=== PATIENT | female | born 1990 | race Caucasian/White ===

== ENCOUNTER 2020-06-22 04:42 | Inpatient (IN) | payer OTHER, SELFPAY ==
[2020-06-22] VITALS (141 sets, daily range): BP systolic 98–142; BP diastolic 52–99; PULSE 62–131; RESP 16–18; TEMP 36.8–37.2; O2SAT 97–100; BMI 26.9
--- NOTE | 2020-06-22 05:11 | LDADM ---
This patient, Sylvia Morales, was admitted to Labor/Delivery/Recovery 104 on 06/22/20 at 04:42. Plans for labor, pain management and were discussed with patient. Patient/family oriented to hospital policies and general routines including ID bracelet, bed and alarms, visiting hours, pain management, procedures, bathroom and other care routines, personal items, smoking policy, room service/diet and guest tray routines, security routines, and visiting hours. Patient/Family are encouraged to report perceived risks to care and to ask questions if they do not understand what they are told or what they should do. See OBIX for further documentation.
[2020-06-22 05:31] LABS: Basophils Absolute Auto 0.1 K/mm3 (0.0-0.1); Basophils Percent Auto 0.6 % (0.2-1.2); Eosinophils Absolute Auto 0.2 K/mm3 (0-0.3); Eosinophils Percent Auto 1.7 % (0-4.4); Hematocrit 32.7 % (37.0-47.0); Hemoglobin 10.6 g/dL (12.0-15.0); Immature Granulocyte Absolute 0.07 K/mm3 (0.00-0.031); Immature Granulocyte Percent A 0.6 % (0-0.5); Lymphocytes Absolute Auto 3.61 K/mm3 (0.9-3.2); Lymphocytes Percent Auto 31.5 % (18.3-44.2); Mean Corpuscular HGB Conc 32.4 g/dl (32-36); Mean Corpuscular Hemoglobin 28.5 pg (26-34); Mean Corpuscular Volume 87.9 fl (80-100); Mean Platelet Volume 12.9 fl (7.4-10.4); Monocytes Absolute Auto 0.7 K/mm3 (0.1-0.6); Monocytes Percent Auto 6.2 % (2.6-8.5); Neutrophils Absolute Auto 6.8 K/mm3 (1.3-6.7); Neutrophils Percent Auto 59.4 % (45.5-73.1); Platelet Count Result 191 k/mm3 (150-375); Red Blood Count 3.72 M/mm3 (4.2-5.4); Red Cell Distribution Width 12.7 % (11.5-14.5); White Blood Count 11.5 K/mm3 (4.5-10.0)
[2020-06-22] MEDS: OXYTOCIN 30 UNITS/NS 500 ML 30 UNITS/500 ML BAG 6 UNITS IV CONT (05:40)
[2020-06-22] MEDS: LACTATED RINGERS 1,000 ML 125 ML IV CONT (05:41)
--- NOTE | 2020-06-22 06:06 | P.PNAN_ITS ---
Anes - Eval Pre Procedure Procedure: labor epidural Date/Time: 06/22/20 06:06 Surgeon: kemar ferguson Pre Op Diagnosis: Induction of labor Patient Data Age: 29 Gender: F Height: 1.78 m Weight: 85 kg Allergies Allergy/AdvReac Type Severity Reaction Status Date / Time No Known Allergies Allergy Verified 05/31/20 15:41 Home Medications Medication Instructions Recorded Confirmed Type PNV cmb#95-ferrous fumarate-FA 1 tablet PO DAILY 05/31/20 05/31/20 History [] Laboratory Tests 06/22/20 06/22/20 05:15 05:15 WBC 11.5 K/mm3 H K/mm3 (4.5-10.0) RBC 3.72 M/mm3 L M/mm3 (4.2-5.4) Hgb 10.6 g/dL L g/dL (12.0-15.0) Hct 32.7 % L % (37.0-47.0) MCV 87.9 fl fl (80-100) MCH 28.5 pg pg (26-34) MCHC 32.4 g/dl g/dl (32-36) RDW 12.7 % % (11.5-14.5) Plt Count 191 k/mm3 k/mm3 (150-375) MPV 12.9 fl H fl (7.4-10.4) Immature Gran % (Auto) 0.6 % H % (0-0.5) Neut % (Auto) 59.4 % % (45.5-73.1) Lymph % (Auto) 31.5 % % (18.3-44.2) [place] % (Auto) 6.2 % % (2.6-8.5) Eos % (Auto) 1.7 % % (0-4.4) Baso % (Auto) 0.6 % % (0.2-1.2) Lymph # (Auto) 3.61 K/mm3 H K/mm3 (0.9-3.2) [place] # (Auto) 0.7 K/mm3 H K/mm3 (0.1-0.6) Eos # (Auto) 0.2 K/mm3 K/mm3 (0-0.3) Baso # (Auto) 0.1 K/mm3 K/mm3 (0.0-0.1) Abs Immat Gran (auto) 0.07 K/mm3 H K/mm3 (0.00-0.031) Absolute Neuts (auto) 6.8 K/mm3 H K/mm3 (1.3-6.7) Absolute Nucleated RBC 0.0 K/mm3 K/mm3 (0.0-0.012) Nucleated RBC % 0.0 % % (0.0-0.2) RPR Pending Patient hx anesthesia problems: none Family hx anesthesia problems: none [facility] Family History Family History (Updated 05/31/20 @ 15:44 by Adenike Hagen RN) Grandparent Hypertension Prostate carcinoma Lung cancer Diabetes type 2, controlled Congestive heart failure Social History Social History Smoking status: Never smoker Substance use: never Spiritual care concerns: No Exam Day of Procedure 06/22/20 06:06
--- NOTE | 2020-06-22 07:57 | PM.IMHP ---
H&P: HPI History of Present Illness Date/Time: 06/22/20 07:57 Chief complaint: Induction of labor Narrative: Sylvia Morales is a 29 year old female 1 para 0 whose last menstrual period was 09/19/2019, EDC is 06/25/2020, presents at 39 and half weeks gestation for induction of labor. She has advanced cervical dilatation with the cervix 4+ cm. Her has been uncomplicated. She is negative for group B strep Review of Systems Review of Systems: All systems reviewed & are unremarkable except as noted in HPI and below PMFSH Family History Family History Grandparent Hypertension Prostate carcinoma Lung cancer Diabetes type 2, controlled Congestive heart failure Social History Social History Smoking status: Never smoker Substance use: never Spiritual care concerns: No Meds Home Medications and Allergies Home Medications Medication Instructions Recorded Confirmed Type PNV cmb#95-ferrous fumarate-FA 1 tablet PO DAILY 05/31/20 05/31/20 History [] Allergies Allergy/AdvReac Type Severity Reaction Status Date / Time No Known Allergies Allergy Verified 05/31/20 15:41 Vital Signs Vital Signs - 24 hr 06/22/20 06:20 06/22/20 06:31 06/22/20 06:46 Temperature 98.2 F Pulse Rate 78 72 68 Blood Pressure 134/84 128/85 101/59 L 06/22/20 07:16 06/22/20 07:31 06/22/20 07:46 Temperature Pulse Rate 75 65 70 Blood Pressure 116/72 109/70 108/79 Exam Const: General: no acute distress Eyes: General: appearance normal, both eyes and all related structures Neck: Neck: supple and no JVD Thyroid: thyroid normal Resp: Effort & Inspection: normal respiratory effort Auscultation: clear to auscultation bilaterally Cardio: Rate: regular rate Rhythm: regular rhythm GI: Inspection: non-distended GI Palp: Yes Soft to palpation, No Tenderness to palpation present (GI) and No Guarding due to palpation present (GI) Auscultation: normal bowel sounds : General: Yes other ( cervix is 4/90/1. AROM clear. FHTs reassuring) Skin: General skin exam: no rashes or lesions noted Extrem: General: normal to inspection and no edema Psych: Mental Status: mental status grossly normal Affect: normal affect H&P: Results Labs Labs: Short CBC 06/22/20 Range/Units 05:15 WBC 11.5 H (4.5-10.0) K/mm3 Hgb 10.6 L (12.0-15.0) g/dL Hct 32.7 L (37.0-47.0) % Plt Count 191 (150-375) k/mm3 Assessment and Plan Additional Plan impression: Term with favorable cervix Plan: Medical induction of labor. Spontaneous vaginal delivery is expected. She has an epidural candidate
[2020-06-22] MEDS: LACTATED RINGERS 1,000 ML 999 ML IV CONT ×2 (11:00→11:01)
--- NOTE | 2020-06-22 11:53 | PM.OBPNVD ---
OB - PN: Subj Subjective Date/time seen: 06/22/20 11:53 cx 6.5 by rn exam fhts ok epidural in OB - PN: Obj Data Labs CBC & Chem 7: 06/22/20 05:15 Labs: Laboratory Results - last 24 hr 06/22/20 06/22/20 05:15 05:15 WBC 11.5 H RBC 3.72 L Hgb 10.6 L Hct 32.7 L MCV 87.9 MCH 28.5 MCHC 32.4 RDW 12.7 Plt Count 191 MPV 12.9 H Immature Gran % (Auto) 0.6 H Neut % (Auto) 59.4 Lymph % (Auto) 31.5 [place] % (Auto) 6.2 Eos % (Auto) 1.7 Baso % (Auto) 0.6 Lymph # (Auto) 3.61 H [place] # (Auto) 0.7 H Eos # (Auto) 0.2 Baso # (Auto) 0.1 Abs Immat Gran (auto) 0.07 H Absolute Neuts (auto) 6.8 H Absolute Nucleated RBC 0.0 Nucleated RBC % 0.0 Blood Type O Positive Antibody Screen Negative OB - PN A/P Time Spent With Patient Time: Total time spent is greater than 50% in coordination of care (as documented) at patient's floor/unit and/or counseling patient:
--- NOTE | 2020-06-22 14:36 | PM.OBPRVD ---
OB - Delivery Note Procedure Delivery date: 06/22/20 Intrapartal events: None Induction method: none Delivery monitor: none Route of delivery: Episiotomy description: None Laceration description: Perineal - 2nd Degree Delivery repair: vicryl Specimen: No Estimated blood loss (mL): 57 Anesthesia type: Epidural Disposition: floor [place] Baby Date of : 06/22/20 Time of : 14:25 Weeks of gestation at delivery: 39 Weight (pounds): 9 Weight (ounces): 11 presentation: vertex position: Right Occiput Anterior Placenta delivery description: Spontaneous cord vessel description: 3 Vessels and Nuchal Cord score one minute: 8 score five minutes: 9
[2020-06-22] MEDS: OXYTOCIN 30 UNITS/NS 500 ML 30 UNITS/500 ML BAG 125 UNITS IV CONT (14:59)
[2020-06-22] MEDS: WITCH HAZEL 40 PADS 1 PAD TOPICAL (16:51)
[2020-06-22] MEDS: IBUPROFEN 600 MG TABLET PO (16:51)
[2020-06-22] MEDS: BENZOCAINE 20% AER SPR (*SP) 56 GM CAN 1 SPRAY TOPICAL (16:51)
--- NOTE | 2020-06-22 17:43 | PC.NURSE ---
Patient transferred to post room #280 via wheelchair. Support person present. Oriented to unit, room, information board, rooming in, admission packet and security measures. Patient verbalizes understanding.
[2020-06-22] MEDS: ACETAMINOPHEN 325 MG TABLET 650 MG PO (20:01)
[2020-06-23] MEDS: IBUPROFEN 600 MG TABLET PO ×3 (00:03→15:45)
[2020-06-23 05:20] LABS: Hematocrit 26.5 % (37.0-47.0); Hemoglobin 8.6 g/dL (12.0-15.0)
--- NOTE | 2020-06-23 06:36 | PM.OBPNVD ---
OB - PN: Subj Subjective Date/time seen: 06/23/20 06:36 Patient comments: no complaints and pain well controlled baby status: doing well and nursing well OB - PN: Obj Data Labs CBC & Chem 7: 06/23/20 04:54 Labs: Laboratory Results - last 24 hr 06/22/20 06/23/20 05:15 04:54 Hgb 8.6 L Hct 26.5 L Blood Type O Positive Antibody Screen Negative OB - PN A/P Plan day: 1 Plan: routine care Time Spent With Patient Time: Total time spent is greater than 50% in coordination of care (as documented) at patient's floor/unit and/or counseling patient: Time with patient: less than 15 minutes Review of Systems Review of Systems: All systems reviewed & are unremarkable except as noted in HPI and below Exam Const: General: no acute distress Eyes: General: appearance normal, both eyes and all related structures Neck: Neck: supple and no JVD Thyroid: thyroid normal Resp: Effort & Inspection: normal respiratory effort Auscultation: clear to auscultation bilaterally Cardio: Rate: regular rate Rhythm: regular rhythm GI: Inspection: non-distended GI Palp: Yes Soft to palpation, No Tenderness to palpation present (GI) and No Guarding due to palpation present (GI) Auscultation: normal bowel sounds : General: Yes bladder normal to palpation External Female Exam: normal external appearance Speculum Exam - Vagina: normal vaginal discharge and No vaginal bleeding Speculum Exam - Cervix: nontender Bimanual exam- vagina & uterus: bladder normal to palpation and No Cervical tenderness present OB/external & speculum: No vaginal bleeding Skin: General skin exam: no rashes or lesions noted Extrem: General: normal to inspection and no edema Psych: Mental Status: mental status grossly normal Affect: normal affect
[2020-06-23] MEDS: MULTIVIT/MIN/PREN/FOL AC/IRON TABLET 1 TAB PO (07:35)
[2020-06-23] MEDS: POLYSACCHARIDE IRON COMPLEX 150 MG CAPSULE PO ×2 (07:35→15:45)
[2020-06-23] MEDS: DOCUSATE SODIUM 100 MG CAPSULE PO ×2 (07:36→15:45)
--- NOTE | 2020-06-23 08:17 | WPDANLDPN2 ---
Anes-Prog Note L&D Date/Time: 06/23/20 08:17 Comfortable throughout: labor and delivery Neuraxial method: epidural Epidural/Spinal procedure site: clean & non-tender Neuro status: Neuro function grossly intact. Cardiovascular status: normal Respiratory status: normal Airway patency: baseline Mental status: baseline Post-Op hydration status: normal Vital Signs: Last Vital Signs Temp 36.9 C 06/22/20 19:50 Pulse 74 06/22/20 19:50 Resp 18 06/22/20 19:50 BP 116/72 06/22/20 19:50 Pulse Ox 99 06/22/20 19:50 Pain score (VAS): 0 Post-procedural complaints: none Patient feedback: Patient satisfied with anesthetic care.
[2020-06-23 09:00] VITALS: BP 119/66; PULSE 75; RESP 16; TEMP 36.6; O2SAT 99
[2020-06-23 09:15] LABS: Rapid Plasma Reagin Non-Reactive (NonReactive)
[2020-06-23 19:35] VITALS: BP 114/67; PULSE 87; RESP 16; TEMP 36.7; O2SAT 100
--- NOTE | 2020-06-23 19:35 | PC.NURSE ---
Patient viewed the discharge video Mother & Baby Care, The First Two Weeks . Patient was given the opportunity and encouraged to ask questions. Patient verbalized understanding of information shared and has been given the mother/baby guide for home reference.
--- NOTE | 2020-06-24 07:27 | PM.DS ---
DS: Admitting Diagnosis Admitting Diagnosis Admitting Diagnosis: Induction of labor Term intrauterine DS: Summary Time Spent with Patient Time attestation: Total time spent providing and/or coordinating discharge services: the patient's hospital course was unremarkable. She is . She was up. Voiding without difficulty. She was without complaints. Routine discharge instructions were given. Her condition upon release was excellent Exam Const: General: no acute distress Eyes: General: appearance normal, both eyes and all related structures Neck: Neck: supple and no JVD Thyroid: thyroid normal Resp: Effort & Inspection: normal respiratory effort Auscultation: clear to auscultation bilaterally Cardio: Rate: regular rate Rhythm: regular rhythm GI: Inspection: non-distended GI Palp: Yes Soft to palpation, No Tenderness to palpation present (GI) and No Guarding due to palpation present (GI) Auscultation: normal bowel sounds : General: Yes bladder normal to palpation External Female Exam: normal external appearance Speculum Exam - Vagina: normal vaginal discharge and No vaginal bleeding Speculum Exam - Cervix: nontender Bimanual exam- vagina & uterus: bladder normal to palpation and No Cervical tenderness present OB/external & speculum: No vaginal bleeding Skin: General skin exam: no rashes or lesions noted Extrem: General: normal to inspection and no edema Psych: Mental Status: mental status grossly normal Affect: normal affect DS: Data Data Completed and Pending Labs on day of discharge: Labs from last 24 hours 06/22/20 05:15 RPR Non-reactive Discharge Plan Discharge Attending physician on discharge: Curry Gross Discharging Clinician: Curry Gross Patient Disposition: Home, Self-Care Activity: may shower, no straining, may drive after 2 weeks and pelvic rest Diet: heart healthy Wound Care Instructions: follow printed instructions Patient Instructions: Antibiotic Form Stand Alone Forms: General Discharge Information Follow-up/Referrals: Curry Gross MD [Primary Care Provider] - Discharge Medications: Continued PNV cmb#95-ferrous fumarate-FA [] 28 mg iron- 800 mcg Tablet 1 tablet PO DAILY RF: 0 Date of admission: 06/22/20 04:42 Primary Care Provider: Curry Gross Admitting Provider: Curry Gross Attending physician on admission: Curry Gross
[2020-06-24] MEDS: IBUPROFEN 600 MG TABLET PO (07:29)
--- NOTE | 2020-06-24 07:29 | PM.OBPNVD ---
OB - PN: Subj Subjective Date/time seen: 06/24/20 07:29 Patient comments: no complaints and pain well controlled baby status: doing well and nursing well OB - PN: Obj Data Labs CBC & Chem 7: 06/23/20 04:54 Labs: Laboratory Results - last 24 hr 06/22/20 05:15 RPR Non-reactive OB - PN A/P Plan day: 1 Plan: routine care, discharge home and follow up 6 weeks Time Spent With Patient Time: Total time spent is greater than 50% in coordination of care (as documented) at patient's floor/unit and/or counseling patient: Time with patient: less than 15 minutes Review of Systems Review of Systems: All systems reviewed & are unremarkable except as noted in HPI and below Exam Const: General: no acute distress Eyes: General: appearance normal, both eyes and all related structures Neck: Neck: supple and no JVD Thyroid: thyroid normal Resp: Effort & Inspection: normal respiratory effort Auscultation: clear to auscultation bilaterally Cardio: Rate: regular rate Rhythm: regular rhythm GI: Inspection: non-distended GI Palp: Yes Soft to palpation, No Tenderness to palpation present (GI) and No Guarding due to palpation present (GI) Auscultation: normal bowel sounds : General: Yes bladder normal to palpation External Female Exam: normal external appearance Speculum Exam - Vagina: normal vaginal discharge and No vaginal bleeding Speculum Exam - Cervix: nontender Bimanual exam- vagina & uterus: bladder normal to palpation and No Cervical tenderness present OB/external & speculum: No vaginal bleeding Skin: General skin exam: no rashes or lesions noted Extrem: General: normal to inspection and no edema Psych: Mental Status: mental status grossly normal Affect: normal affect
[2020-06-24 07:30] VITALS: BP 113/76; PULSE 90; RESP 12; TEMP 36.8; O2SAT 99
[2020-06-24] MEDS: POLYSACCHARIDE IRON COMPLEX 150 MG CAPSULE PO (07:30)
[2020-06-24] MEDS: DOCUSATE SODIUM 100 MG CAPSULE PO (07:30)
[2020-06-24] MEDS: MULTIVIT/MIN/PREN/FOL AC/IRON TABLET 1 TAB PO (07:30)
--- NOTE | 2020-06-24 12:05 | PC.NURSE ---
Mother verbalizes she is able to independently latch with appropriate positioning/alignment. She denies any nipple discomfort, is feeding as required and waking to feed if needed. Infant has had appropriate number effective feedings in the past 24 hours, and is currently meeting outcomes for weight, output, jaundice and feeding frequencies. Mother states she feels confident to continue effective at home. Reviewed transition to breast milk, signs of adequate intake, and engorgement/relief. Instructed to call ICP if intake/output less than required. Reviewed resources in the Mom/Baby guide. Mother has no further questions at this time.
[2020-06-26 10:27] VITALS: BP 136/75; PULSE 74; RESP 20; O2SAT 100
== END 2020-06-24 13:30 | disposition home or self-care (01) | DRG 807 ==
LOC: ANHLDR 04:46 → ANHOB2 18:46
PROVIDERS: Admitting Provider Obstetrics & Gynecology; PCP Obstetrics & Gynecology; Visit Provider Obstetrics & Gynecology
DX: O69.81X0 Labor and delivery complicated by cord around neck, without compression, not applicable or unspecified (principal); Z37.0 Single live birth; O70.1 Second degree perineal laceration during delivery; Z3A.39 39 weeks gestation of pregnancy; Z28.21 Immunization not carried out because of patient refusal
CPT/HCPCS: 36415; 85014; 85018; 85025; 86592; 86850; 86900; 86901; A9270; J2590; J7120

== ENCOUNTER 2022-11-12 14:56 | Outpatient (CLI) | payer OTHER, SELFPAY ==
--- NOTE | ~2022-11-12 | US_ITS ---
EXAMINATION: US OB <= 14 weeks fetus DATE: 11/12/2022 15:51 INDICATION: Vaginal bleeding and cramping Comparison:No prior studies for comparison. TECHNIQUE: Multiple transabdominal and endovaginal sonographic images of the pelvis performed. FINDINGS: The uterus measures 7.7 x 5.9 x 4 cm. The endometrial complex measures 5 mm. No evidence fo r intrauterine gestational sac. The right ovary measures 4.2 x 4.1 x 2.5 cm and the left ovary measures 2.7 x 2.4 x 2.1 cm. There ar e small follicles in each ovary. Normal doppler signal in both ovaries. There is a 2.4 cm right ovari an cyst. There is free fluid in the pelvis. There are no abnormal masses seen on either side. IMPRESSION: 1. No evidence for intrauterine gestational sac. Differential diagnosis very early intrauterine pregn khloe, failed and ectopic . Recommend follow-up with quantitative beta-hCG levels a nd ultrasound as clinically warranted. 2: 2.4 cm right ovarian cyst. Reviewed, dictated and finalized at location [facility] IMPRESSION: 1. No evidence for intrauterine gestational sac. Differential diagnosis very ea rly intrauterine , failed and ectopic . Recommend f ollow-up with quantitative beta-hCG levels and ultrasound as clinically warrant ed. 2: 2.4 cm right ovarian cyst.
== END 2022-11-12 14:57 | disposition home or self-care (01) ==
PROVIDERS: PCP Internal Medicine; Visit Provider Obstetrics & Gynecology
DX: O20.0 Threatened abortion (principal); N83.201 Unspecified ovarian cyst, right side
CPT/HCPCS: 76801

== ENCOUNTER 2023-10-01 19:26 | Observation (INO) | payer OTHER, SELFPAY ==
[2023-10-01 19:45] VITALS: BMI 27.4
[2023-10-01 20:03] VITALS: RESP 16; TEMP 37.1
--- NOTE | 2023-10-01 21:38 | OBADM ---
This patient, Sylvia Morales, admitted to the OB room Labor/Delivery/Recovery 106 for observation. Patient/family oriented to hospital policies and general routines including ID bracelet, bed and alarms, visiting hours, pain management, procedures, bathroom and other care routines, personal items, smoking policy, room service/diet, and visiting hours. Patient/Family are encouraged to report perceived risks to care and to ask questions if they do not understand what they are told or what they should do.
--- NOTE | 2023-10-24 05:35 | PM.OBTRLD ---
OB - Triage/Final Diagnosis Visit Information Comments/Additional reasons for admission: I have assessed the risk for this patient, Sylvia Morales, and determined that she would benefit from observation care. Final Diagnosis (1) Decreased movement: Code(s): O36.8190 - Decreased movements, unspecified trimester, not applicable or unspecified Status: Acute
== END 2023-10-01 21:41 | disposition home or self-care (01) ==
PROVIDERS: Admitting Provider Obstetrics & Gynecology; PCP Internal Medicine; Visit Provider Obstetrics & Gynecology
DX: O36.8130 Decreased fetal movements, third trimester, not applicable or unspecified (principal); Z3A.37 37 weeks gestation of pregnancy
CPT/HCPCS: G0378; G0379

== ENCOUNTER 2023-10-08 17:55 | Inpatient (IN) | payer OTHER, SELFPAY ==
[2023-10-08] VITALS (65 sets, daily range): BP systolic 89–153; BP diastolic 56–101; PULSE 66–189; RESP 18; TEMP 36.6–36.9; O2SAT 96–100; BMI 28.0
--- NOTE | 2023-10-08 18:06 | PM.IMHP ---
H&P: HPI History of Present Illness Date/Time: 10/08/23 18:06 Chief Complaint: Return Narrative: this is a 33-year-old 3 para 1 whose EDC is 10/18 confirmed by early ultrasound presents at 39 half weeks gestation in active labor she is group B strep back to your yeah. has otherwise been uncomplicated [facility] Family History Family History Grandparent Hypertension Prostate carcinoma Lung cancer Diabetes type 2, controlled Congestive heart failure Social History Social History Social History: Smoking status: Never smoker Second hand tobacco smoke exposure: No Alcohol intake: current Alcohol use details: Occasionally Substance use: never Substance use type: does not use Living arrangements: with family Occupation/Education: unemployed Additional occupation/education comments: Stay at home mom. Gender identity (if verbalized by the patient): Female Sexual Orientation (if Verbalized by the Patient): Straight or Heterosexual Spiritual care concerns: No Meds Home Medications and Allergies Home Medications Medication Instructions Recorded Confirmed Type ferrous sulfate 325 mg (65 mg 325 mg PO BID 09/19/23 09/19/23 History iron) tablet vits no.126-ferrous fum 1 tablet PO DAILY 09/19/23 09/19/23 History 28 mg iron-folic acid 800 mcg tablet (Classic ) Allergies Allergy/AdvReac Type Severity Reaction Status Date / Time No Known Allergies Allergy Verified 09/19/23 12:28 Exam Const: General: cooperative, healthy appearing and comfortable Nutritional Appearance: average body habitus Orientation/consciousness: oriented to person, oriented to place and oriented to time HENMT: Head: normal to inspection Chest: Chest palpation & inspection: normal inspection of the chest Resp: Effort & Inspection: normal respiratory effort Cardio: Rate: regular rate Rhythm: regular rhythm Heart sounds: S1 normal heart sound present and S2 normal heart sound present GI: Inspection: normal to inspection ( gravid soft uterus) : External Female Exam: normal external appearance Speculum Exam - Vagina: normal appearance of the vagina Speculum Exam - Cervix: normal appearance of the cervix ( cervix /. FHTs reassuring) Assessment and Plan Assessment and plan (1) Term : Code(s): Z34.90 - Encounter for supervision of normal , unspecified, unspecified trimester Status: Acute (2) Mother positive for group B Streptococcus colonization: Code(s): P00.82 - [place] affected by (positive) maternal group B streptococcus (GBS) colonization Status: Acute Plan group B strep prophylaxis. Spontaneous vaginal delivery expected. She is an epidural candidate
[2023-10-08 18:18] LABS: Basophils Absolute Auto 0.1 K/mm3 (0.0-0.1); Basophils Percent Auto 0.7 % (0.2-1.2); Eosinophils Absolute Auto 0.2 K/mm3 (0-0.3); Eosinophils Percent Auto 1.4 % (0-4.4); Hematocrit 38.7 % (37.0-47.0); Hemoglobin 12.4 g/dL (12.0-15.0); Immature Granulocyte Absolute 0.07 K/mm3 (0.00-0.031); Immature Granulocyte Percent A 0.5 % (0-0.5); Immature Platelet Fraction Pct 22.9 % (0.9-11.2); Lymphocytes Absolute Auto 3.27 K/mm3 (0.9-3.2); Lymphocytes Percent Auto 23.9 % (18.3-44.2); Mean Corpuscular Hemoglobin 30.8 pg (26-34); Mean Platelet Volume 13.5 fl (7.4-10.4); Monocytes Absolute Auto 0.8 K/mm3 (0.1-0.6); Monocytes Percent Auto 6.1 % (2.6-8.5); Neutrophils Absolute Auto 9.2 K/mm3 (1.3-6.7); Neutrophils Percent Auto 67.4 % (45.5-73.1); Platelet Count Result 170 k/mm3 (150-375); Red Blood Count 4.03 M/mm3 (4.2-5.4); Red Cell Distribution Width 14.2 % (11.5-14.5); White Blood Count 13.7 K/mm3 (4.5-10.0)
[2023-10-08] MEDS: LACTATED RINGERS 1,000 ML 125 ML IV CONT ×2 (18:18→18:56)
[2023-10-08] MEDS: AMPICILLIN 2 GM/NS 100 ML 2 GM/100 ML BAG IVPB (18:18)
[2023-10-08] MEDS: fentaNYL CITRATE INJ (*CRX) 100 MCG/2 ML VIAL 50 MCG IV PUSH (18:28)
--- NOTE | 2023-10-08 18:37 | WPDANESEPP ---
Anes - Eval Pre Procedure Procedure: Labor epidural Date/Time: 10/08/23 18:37 Surgeon: Yun Garcia Preop Diagnosis: Abdominal pain with contractions Pre Op Diagnosis: labor Patient Data Age: 33 Gender: F Height: Weight: Last Vital Signs Temp 98 F 10/08/23 18:18 Pulse 68 10/08/23 18:31 BP 129/69 10/08/23 18:31 Allergies Allergy/AdvReac Type Severity Reaction Status Date / Time No Known Allergies Allergy Verified 10/08/23 18:24 Home Medications Medication Instructions Recorded Confirmed Type ferrous sulfate 325 mg (65 mg 325 mg PO BID 09/19/23 10/08/23 History iron) tablet vits no.126-ferrous fum 1 tablet PO DAILY 09/19/23 10/08/23 History 28 mg iron-folic acid 800 mcg tablet (Classic ) Laboratory Tests 10/08/23 18:11 WBC 13.7 H K/mm3 (4.5-10.0) RBC 4.03 L M/mm3 (4.2-5.4) Hgb 12.4 D g/dL (12.0-15.0) Hct 38.7 % (37.0-47.0) MCV 96.0 fl (80-100) MCH 30.8 pg (26-34) MCHC 32.0 g/dl (32-36) RDW 14.2 % (11.5-14.5) Plt Count 170 k/mm3 (150-375) MPV 13.5 H fl (7.4-10.4) Immature Gran % (Auto) 0.5 % (0-0.5) Neut % (Auto) 67.4 % (45.5-73.1) Lymph % (Auto) 23.9 % (18.3-44.2) [place] % (Auto) 6.1 % (2.6-8.5) Eos % (Auto) 1.4 % (0-4.4) Baso % (Auto) 0.7 % (0.2-1.2) Lymph # (Auto) 3.27 H K/mm3 (0.9-3.2) [place] # (Auto) 0.8 H K/mm3 (0.1-0.6) Eos # (Auto) 0.2 K/mm3 (0-0.3) Baso # (Auto) 0.1 K/mm3 (0.0-0.1) Abs Immat Gran (auto) 0.07 H K/mm3 (0.00-0.031) Absolute Neuts (auto) 9.2 H K/mm3 (1.3-6.7) Absolute Nucleated RBC 0.0 K/mm3 (0.0-0.012) Nucleated RBC % 0.0 % (0.0-0.2) % Immature Plt Fraction 22.9 H % (0.9-11.2) : gestational age HCG: positive Patient hx anesthesia problems: none Family hx anesthesia problems: none Results Review: All pre-operative results and documents have been reviewed as part of the pre-operative evaluation. [facility] Past Medical History Medical History (Updated 10/08/23 @ 18:37 by Mehrdad Levine CRNA) Overweight (BMI 25.0-29.9) Term Family History Family History Grandparent Hypertension Prostate carcinoma Lung cancer Diabetes type 2, controlled Congestive heart failure Social History Social History Social History: Smoking status: Never smoker Second hand tobacco smoke exposure: No Alcohol intake: current Alcohol use details: Occasionally Substance use: never Substance use type: does not use Living arrangements: with family Occupation/Education: unemployed Additional occupation/education comments: Stay at home mom. Gender identity (if verbalized by the patient): Female Sexual Orientation (if Verbalized by the Patient): Straight or Heterosexual Spiritual care concerns: No Exam Day of Procedure 10/08/23 18:37 Patient weight: overweight
[2023-10-08] MEDS: OXYTOCIN 30 UNITS/NS 500 ML 30 UNITS/500 ML BAG 999 UNITS IV CONT (19:10)
--- NOTE | 2023-10-08 19:17 | PM.OBPRVD ---
OB - Vaginal Delivery Note Procedure Delivery date: 10/08/23 Events: Positive Group B Strep (GBS) Induction method: None Delivery monitor: External FHT and External Uterine Route of delivery: Episiotomy description: None Laceration Description: None Quantitative Blood Loss (ml): 61 Anesthesia type: Epidural Disposition: Floor Complications: No immediate complications [place] Baby Date of : 10/08/23 Time of : 19:07 Weeks of gestation at delivery: 38 presentation: vertex position: Right Occiput Anterior Placenta delivery description: Spontaneous Cord Vessel Description: 3 Vessels score one minute: 9 score five minutes: 9 Narrative: Ampicillin x1 for group B strep
--- NOTE | 2023-10-08 19:18 | P.DS_ITS ---
DS: Admitting Diagnosis Discharge Date 10/09/23 Admitting Diagnosis term /positive group B strep DS: Discharge Diagnosis Discharge Diagnosis (1) Mother positive for group B Streptococcus colonization: Code(s): P00.82 - affected by (positive) maternal group B streptococcus (GBS) colonization Status: Acute (2) Term : Code(s): Z34.90 - Encounter for supervision of normal , unspecified, unspecified trimester Status: Acute DS: Summary Hospital Course Reason for hospitalization: patient was admitted in active labor at 38 weeks half gestation on 10/08/2023 Hospital Course: she underwent spontaneous vaginal delivery with epidural. She only received 1 dose of ampicillin. Her hospital course unremarkable. She remained afebrile. She was up, voiding without difficulty, eating regular diet, ambulating, generally without complaints. Time Spent with Patient Time attestation: Total time spent providing and/or coordinating discharge services: Exam Const: General: cooperative, healthy appearing and comfortable Nutritional Appearance: average body habitus Orientation/consciousness: oriented to person, oriented to place and oriented to time HENMT: Head: normal to inspection Resp: Effort & Inspection: normal respiratory effort Cardio: Rate: regular rate Rhythm: regular rhythm Heart sounds: S1 normal heart sound present and S2 normal heart sound present GI: Inspection: normal to inspection ( Fundus firm below the umbilicus) DS: Data Data Completed and Pending Labs on day of discharge: Labs from last 24 hours 10/08/23 18:11 WBC 13.7 H RBC 4.03 L Hgb 12.4 D Hct 38.7 MCV 96.0 MCH 30.8 MCHC 32.0 RDW 14.2 Plt Count 170 MPV 13.5 H Immature Gran % (Auto) 0.5 Neut % (Auto) 67.4 Lymph % (Auto) 23.9 [place] % (Auto) 6.1 Eos % (Auto) 1.4 Baso % (Auto) 0.7 Lymph # (Auto) 3.27 H [place] # (Auto) 0.8 H Eos # (Auto) 0.2 Baso # (Auto) 0.1 Abs Immat Gran (auto) 0.07 H Absolute Neuts (auto) 9.2 H Absolute Nucleated RBC 0.0 Nucleated RBC % 0.0 % Immature Plt Fraction 22.9 H Blood Type O Positive Antibody Screen Pending Discharge Plan Discharge Attending physician on discharge: Curry Meneses Discharging Clinician: Curry Meneses Patient Disposition: Home, Self-Care Activity: may shower and pelvic rest Diet: heart healthy Wound Care Instructions: follow printed instructions Patient Instructions: Antibiotic Form Stand Alone Forms: General Discharge Information Follow-up/Referrals: Curry Meneses MD [Physician] - Discharge Medications: Continued Classic 28 mg iron- 800 mcg Tablet 1 tablet PO DAILY ferrous sulfate 325 mg (65 mg iron) Tablet 325 mg PO BID Date of admission: 10/08/23 17:55 Primary Care Provider: DaveElaina Admitting Provider: Curry Meneses Attending physician on admission: Curry Meneses Condition: Stable
[2023-10-08] MEDS: OXYTOCIN 30 UNITS/NS 500 ML 30 UNITS/500 ML BAG 125 UNITS IV CONT (19:44)
--- NOTE | 2023-10-08 21:45 | ADMGEN ---
This patient, Sylvia Morales, was admitted to Labor/Delivery/Recovery 106-00. Patient/family oriented to hospital policies and general routines including ID bracelet, bed and alarms, visiting hours, pain management, procedures, bathroom and other care routines, personal items, smoking policy, room service/diet, and visiting hours. Information on how to activate the Rapid Response Team has been discussed. Patient/Family are encouraged to report perceived risks to care and to ask questions if they do not understand what they are told or what they should do.
--- NOTE | 2023-10-08 22:08 | OBPPTRN ---
Patient transferred to post room #285 via w/c. Support person present. Oriented to unit, room, information board, rooming in, admission packet and security measures. Patient verbalizes understanding.
[2023-10-09] MEDS: IBUPROFEN 600 MG TABLET PO ×3 (00:10→17:11)
[2023-10-09 04:50] VITALS: BP 118/64; PULSE 69; RESP 18; TEMP 36.8
[2023-10-09 05:19] LABS: Hematocrit 33.1 % (37.0-47.0); Hemoglobin 10.7 g/dL (12.0-15.0)
--- NOTE | 2023-10-09 06:53 | P.PNOB_ITS ---
OB - PN: Subj Subjective Date/time seen: 10/09/23 06:53 Interval history: wants to go home Patient comments: no complaints and pain well controlled [place] baby status: doing well OB - PN: Obj Data Labs 10/09/23 04:44 Labs: Laboratory Results - last 24 hr 10/08/23 10/09/23 18:11 04:44 WBC 13.7 H RBC 4.03 L Hgb 12.4 D 10.7 L Hct 38.7 33.1 L MCV 96.0 MCH 30.8 MCHC 32.0 RDW 14.2 Plt Count 170 MPV 13.5 H Immature Gran % (Auto) 0.5 Neut % (Auto) 67.4 Lymph % (Auto) 23.9 [place] % (Auto) 6.1 Eos % (Auto) 1.4 Baso % (Auto) 0.7 Lymph # (Auto) 3.27 H [place] # (Auto) 0.8 H Eos # (Auto) 0.2 Baso # (Auto) 0.1 Abs Immat Gran (auto) 0.07 H Absolute Neuts (auto) 9.2 H Absolute Nucleated RBC 0.0 Nucleated RBC % 0.0 % Immature Plt Fraction 22.9 H Blood Type O Positive Antibody Screen Negative OB - PN A/P Plan day: 1 Plan: routine care Time Spent With Patient Time: Total time spent is greater than 50% in coordination of care (as documented) at patient's floor/unit and/or counseling patient: Time with patient: less than 15 minutes Exam Const: General: cooperative, healthy appearing and comfortable Orientation/consciousness: oriented to person, oriented to place and oriented to time HENMT: Head: normal to inspection Resp: Effort & Inspection: normal respiratory effort Cardio: Rate: regular rate Rhythm: regular rhythm Heart sounds: S1 normal heart sound present and S2 normal heart sound present GI: Inspection: normal to inspection (fundus firm)
[2023-10-09] MEDS: BENZOCAINE 20% AER SPR (*SP) 56 GM CAN 1 SPRAY TOPICAL (06:59)
[2023-10-09] MEDS: WITCH HAZEL 40 PADS 1 PAD TOPICAL (07:00)
[2023-10-09 07:25] VITALS: BP 116/71; PULSE 67; RESP 16; TEMP 37.2; O2SAT 100
[2023-10-09] MEDS: DOCUSATE SODIUM 100 MG CAPSULE PO ×2 (08:13→17:11)
[2023-10-09] MEDS: MULTIVIT/MIN/PREN/FOL AC/IRON TABLET 1 TAB PO (08:13)
--- NOTE | 2023-10-09 08:51 | WPDANLDPN2 ---
Anes-Prog Note L&D Date/Time: 10/09/23 08:51 Comfortable throughout: labor and delivery Neuraxial method: epidural Epidural/Spinal procedure site: clean & non-tender Neuro status: Neuro function grossly intact. Cardiovascular status: normal Respiratory status: normal Airway patency: baseline Mental status: baseline Post-Op hydration status: normal Vital Signs: Last Vital Signs Temp 36.8 C 10/09/23 04:50 Pulse 69 10/09/23 04:50 Resp 18 10/09/23 04:50 BP 118/64 10/09/23 04:50 Pulse Ox 98 10/08/23 21:52 O2 Del Method Room Air 10/08/23 22:30 Pain score (VAS): 2/10 I/O: Intake & Output 10/08/23 10/09/23 10/09/23 23:59 07:59 15:59 Intake Total 1000 Balance 1000 Post-procedural complaints: none Patient feedback: Patient satisfied with anesthetic care.
--- NOTE | 2023-10-09 09:28 | PC.NURSE ---
[id number] Introductions were made to assess goals. is spitting up copius amounts of clear/ yellow (colostrum in appearance) fluid. Parents state has a stool diaper as well. emptied copious amounts of stool, showed feeding cues, then mother independently latched infant to the right breast using cradle positioning. Education given to the mother of how to visualize the suckling (with good rocking jaw motion), swallows (dropping of the lower jaw) and infant demonstrated dropping of the lower jaw with frequent intermittent motion. was able to maintain latch without pain to mother protecting the nipple with optimal positioning, deep latching, and supporting the appropriate latch. Inpatient/outpatient resources provided with feeding sheet, name written on the communication board, and the mom/baby guide. Parents voiced understanding of information, demonstrated learning and will call if there is a request for assistance. Reported to the Primary RN.
[2023-10-09 11:50] VITALS: BP 106/64; PULSE 70; RESP 18; TEMP 36.8; O2SAT 98
[2023-10-09 13:27] LABS: Rapid Plasma Reagin Non-Reactive (NonReactive)
[2023-10-09 19:45] VITALS: BP 128/46; PULSE 70; RESP 16; TEMP 36.8; O2SAT 100
[2023-10-10] MEDS: DOCUSATE SODIUM 100 MG CAPSULE PO (06:29)
[2023-10-10] MEDS: MULTIVIT/MIN/PREN/FOL AC/IRON TABLET 1 TAB PO (06:29)
[2023-10-10 06:35] VITALS: BP 110/72; PULSE 72; RESP 18; TEMP 36.4; O2SAT 98
--- NOTE | 2023-10-10 06:50 | PM.OBPNVD ---
OB - PN: Subj Subjective Date/time seen: 10/10/23 06:50 Interval history: wants to go home Patient comments: no complaints and pain well controlled [place] baby status: doing well and nursing well OB - PN: Obj Data Labs 10/09/23 04:44 Labs: Laboratory Results - last 24 hr 10/08/23 18:11 RPR Non-reactive OB - PN A/P Plan day: 2 Plan: routine care, discharge home and follow up 6 weeks Time Spent With Patient Time: Total time spent is greater than 50% in coordination of care (as documented) at patient's floor/unit and/or counseling patient: Time with patient: less than 15 minutes Exam Const: General: cooperative, healthy appearing and comfortable Nutritional Appearance: average body habitus Orientation/consciousness: oriented to person, oriented to place and oriented to time HENMT: Head: normal to inspection Resp: Effort & Inspection: normal respiratory effort Cardio: Rate: regular rate Rhythm: regular rhythm Heart sounds: S1 normal heart sound present and S2 normal heart sound present GI: Inspection: normal to inspection (fundus firm)
--- NOTE | 2023-10-10 09:35 | PC.NURSE ---
[id number] Mother led the conversation with her experience so far, plan to feed her , and her ability to independently latch optimally without discomfort. Reminded mother to use good handwashing technique to prevent infection. Mother is feeding appropriately for growth of infant and understands stimulating to eat if needed. Infant has had appropriate feedings in the last 24 hours meets the outcomes for weight, output, blood sugar and jaundice at this time. Mother states she is confident to continue effectively her at home, when to call for assistance, denies any additional assistance or education at this time after discussion and answering questions. Reinforced understanding of milk production, transition of milk, signs of adequate intake, transition of stool, prevention/relief of engorgement, plugged ducts, mastitis, responsive watching for feeding cues, the different methods of stimulating infant to breastfeed 1-3 hours after the start of the last feeding, community resources, and when to call a provider using the resource of the feeding sheet along with the mom and baby guide. Parents voiced understanding of the education shared. Reported to the Primary RN.
[2023-10-11 10:07] VITALS: BP 124/81; PULSE 79; RESP 18; TEMP 36.8; O2SAT 99
== END 2023-10-10 11:01 | disposition home or self-care (01) | DRG 807 ==
LOC: ANHLDR 19:20 → ANHOB2 22:23
PROVIDERS: Admitting Provider Obstetrics & Gynecology; PCP Internal Medicine; Visit Provider Obstetrics & Gynecology
DX: O99.824 Streptococcus B carrier state complicating childbirth (principal); Z37.0 Single live birth; Z3A.38 38 weeks gestation of pregnancy; O62.3 Precipitate labor
CPT/HCPCS: 36415; 85014; 85018; 85025; 85055; 86592; 86850; 86900; 86901; A9270; J0290; J2590; J2795; J3010; J7120